=== PATIENT | female | born 1930 | race Caucasian/White ===

== ENCOUNTER 2016-05-12 10:43 | Inpatient (IN) | payer OTHER ==
[~2016-05-12] VITALS: Ht 162.6 cm; Wt 68.5 kg
[~2016-05-12 10:43] MED LIST: ADVIN25/60 INH; CALC-338 PO; CLB/200 PO; CLOP1TAB15 PO; DILT180C70 PO; DONE1TAB25 PO; FENO48TA9 PO; FLUO20CA35 PO; HYDR1TAB2 PO; LANS15CA27 PO; MULT-190 PO; OXYB5TAB74 PO; SIMV20TA2 PO
[2016-05-12] MEDS ORDERED: SODIUM CHLORIDE 0.9% 1000ML 1,000 ML IV SCH (17:31)
[2016-05-12 17:32] VITALS: BP 127/79; PULSE 81; TEMP 36.8; O2SAT 96; Ht 162.6 cm; Wt 68.5 kg
[2016-05-12] MEDS ORDERED: CALC500C70 PO (17:44)
[2016-05-12] MEDS ORDERED: MELA1TAB5 PO (17:44)
[2016-05-12] MEDS ORDERED: ACET-1256 PO (17:44)
[2016-05-12] MEDS ORDERED: MIRA1TAB3 PO (17:44)
[2016-05-12] MEDS ORDERED: ASPI81TA28 PO (17:44)
[2016-05-12] MEDS ORDERED: MEMA1CAP7 PO (17:44)
[2016-05-12] MEDS ORDERED: ACETAMINOPHEN IV 100 ML IV PRN (17:45)
[2016-05-12] MEDS ORDERED: MoRPHine SULFATE 2 MG/ML CARP IV PRN (17:45)
[2016-05-12] MEDS ORDERED: ONDANSETRON INJ 2 MG/ML 2 ML VIAL IV PRN (17:45)
--- NOTE | 2016-05-12 18:13 | History and Physical ---
History & Physical Date of Service May 12, 2016. History & Physical rectal bleeding Dr case consult [id number] Rn to call md to get order of blood transfusion when hb <8 RN please continue none weight bearing in left lower leg until get more instruction from patient ortho Dr. Carson office in [facility] tomorrow RN please call and get more instruction from patient ortho Dr. Carson office in [place] tomorrow about weight bearing
[2016-05-12 18:25] LABS: HEMATOCRIT 26.3 % (37-47); MEAN CELL VOLUME 85.4 fL (80-100); MEAN CORPUSCULAR HEMOGLOBIN 31.2 pg (25-34); MEAN CORPUSCULAR HGB CONC 36.5 g/dl (32-36); MEAN PLATELET VOLUME 8.6 fL (7.4-10.4); PLATELET COUNT 260 K/uL (130-400); RED BLOOD COUNT 3.08 M/uL (4.2-5.4); WHITE BLOOD COUNT 11.93 K/uL (4.8-10.8)
[2016-05-12] MEDS ORDERED: NURSING VERBAL MED ORDER ONE ×2 (18:30→18:45)
[2016-05-12 18:36] LABS: INR 1.1 (0.9-1.1); PROTHROMBIN TIME (PATIENT) 11.4 SECONDS (9.0-12.0)
[2016-05-12] MEDS ORDERED: METOPROLOL TARTRATE 1 MG/ML VIAL IV. SCH (18:45)
[2016-05-12] MEDS: D5W AND 1/2NSS 1,000 ML IV SCH (18:45)
--- NOTE | 2016-05-12 18:56 | HISTORY & PHYSICAL EXAMINATION ---
DATE OF ADMISSION: 05/12/2016 This is a level 3 inpatient admission, 40 minutes. CHIEF COMPLAINT: Rectal bleeding. HISTORY OF PRESENT ILLNESS: An 85-year-old white female with a significant past medical history of multiple brain infarctions, CVA, dementia, recent hip repair 2 weeks ago, hypertension transferred from [facility] because of the rectal bleeding. The medical history was based on the medical record from [facility], discussed with the patient, and with the patient's daughter who is power of banking attorney at the bedside. Reported she was having left hip fracture and had a procedure done with a pin in the left hip 2 weeks ago, the orthopedic doctor was Dr. Carosn, and then she went to extended nursing care facilities for rehabilitation. In the nursing care facility the patient noticed to have rectal bleeding which she described as flushing out red blood per rectum. She was admitted to the [facility] and she had a blood transfusion and p.o. Protonix. Totally, she got 3 units of blood transfusion and last unit was finished at 1:00 p.m. today. Today's lab in [place] at [facility] - WBC was 11.2, hemoglobin was 7.3, but after transfusion was not checked yet. The patient reported was having dizziness, but denied chest pain, shortness of breath, palpitation. Denied cough, sputum, lower extremity swelling. Denied facial droop, slurry speeches or local weakness. Denied fever or chills. Denied dysuria, urgency and frequencies. PAST MEDICAL HISTORY: Like I mentioned in the above. SOCIAL HISTORY: The patient is do not resuscitation. The patient was living in the nursing home facilities prior to admission to the [facility]. Denied tobacco abuse disorder, denied alcohol abuse disorder, denied illicit drug abuse. PAST SURGICAL HISTORY: Include left hip recent repairing because of a fall. REVIEW OF SYSTEMS: Please see HPI, otherwise 14 points organ system review were negative. PHYSICAL EXAMINATION: VITAL SIGNS: Temperature is 36.8, pulse 81, respiratory rate 20, blood pressure 137/79. Pulse ox was 96% on room air. GENERAL: The patient is a white female, decreased hearing. HEAD: Normocephalic. EYES: Pupils equal, round responds to light. EARS: Ear was normal. NOSE: Normal. NECK: Supple. Thyroid - no enlargement. Trachea in midline. HEART: Regular rhythm. S1, S2. LUNGS: Decreased breathing sounds. There was no wheezing, rhonchi or crackles. ABDOMEN: Soft, nontender. Bowel sounds were positive. GENITOURINARY AND RECTAL: Deferred. EXTREMITIES: Bilateral lower extremity - no swelling. Homans sign was negative. Calf was nontender. Left hip area - incision was clean Daughter reported left hip incision staple was just removed today. MEDICATIONS: Medications taking in [facility] which include: 1. Lasix 1 dose in [facility] 2. Protonix 80 mg IV x1. 3. Vitamin A. 4. Prozac 20 mg p.o. daily. 5. Myrbetriq - details unknown. 6. Cardizem-CD 180 mg p.o. daily. 7. Tylenol 500 mg p.o. q. 6 hours p.r.n. for pain. 8. Namenda 10 mg p.o. q.p.m. 9. Melatonin 3 mg p.o. at bedtime. 10. Aricept 10 mg p.o. at bedtime. She was taking aspirin 81 mg p.o. daily, Plavix 75 mg p.o. daily, and Lovenox 30 mg subQ daily, which were discontinued during the hospital stay in [facility]. IMAGING DATA: Imaging studies include head CT, chest x-ray and abdominal pelvis CT studies. Head CT studies show no acute intracranial process. While reviewing medical records, we do not see abdominal and pelvis CT report yet. We have the disc come together with medical record and will send to radiology department for radiologist's review, Will continue searching for the medical records, but so far I did not see any report of abd/pelvix CT. LABORATORY STUDIES: Like I mentioned the labs in [facility] today - WBC 11.2, hemoglobin 7.3, platelet 267. Blood glucose 89, BUN 21, creatinine 0.5, sodium 143, potassium 4, chloride 109, bicarbonate 24, calcium 7.8. ASSESSMENT AND PLAN: An 85-year-old white female with the problems below: 1. Rectal bleeding, etiology unknown, is on Lovenox for DVT px post hip procedure, aspirin, and Plavix prior to these episodes. no hx of GI bleeding. 2. Recent history of left hip repairing just had the staple removed today. Lovenox for deep vein thrombosis prophylaxis. Her orthopedic surgeon in [place] is Dr. Carson. 3. Acute blood loss anemia from gastrointestinal bleeding. 4. History of cerebrovascular accident. 5. Dementia. 6. Hypertension. 7. Depression. Discussed with patient and daughter about a care plan. Will be n.p.o., IV fluid, Protonix IV b.i.d., Dr. Jacobsen's consultation, the reason for request Dr. Jacobsen because patient's daughter's GI doctor is Dr. Jacobsen as well. Therefore, patient prefers Dr. Jacobsen to see her. We will check H\T\H q. 6 hours. Type and cross hold 2-unit blood, and if hemoglobin level less than 8 will have nurse to call M.D. to give order of blood transfusion. n.p.o. The patient was on Cardizem-CD at home for unknown reason, other medical conditions include hypertension. Will hold Cardizem-CD for now as well as all other oral medications. Continue supportive care. have ordered lopressor iv q 6 prn for elevated BP and HR. Gastrointestinal prophylaxis is covered by Protonix. Deep venous thrombosis prophylaxis is contraindicated from a pharmacologic, such as heparin product, but will have FLIP hose for deep vein thrombosis prophylaxis. Discussed with patient and daughter about a care plan, transfusion consent was signed. The patient confirmed is do not resuscitation. MTDD
[2016-05-12] MEDS ORDERED: METOPROLOL TARTRATE 1 MG/ML VIAL IV PRN (19:00)
[2016-05-12 19:37] VITALS: BP 101/60; PULSE 73; TEMP 36.7; O2SAT 96
[2016-05-12] MEDS: PANTOprazole INJ 40 MG in SYRINGE 0 ML IV SCH (21:29)
[2016-05-12 22:32] LABS: HEMATOCRIT 25.5 % (37-47)
[2016-05-13] VITALS (7 sets, daily range): BP systolic 108–145; BP diastolic 61–91; PULSE 70–79; TEMP 36.6–37.1; O2SAT 94–97
[2016-05-13 06:43] LABS: BASO % 0.2 %; BASO ABS # 0.02 K/uL (0-0.2); EOS % 5.1 %; HEMATOCRIT 25.1 % (37-47); IG% 0.9 %; LYMPH % 18.8 %; LYMPH ABS # 1.86 K/uL (1.2-3.4); MEAN CELL VOLUME 88.7 fL (80-100); MEAN CORPUSCULAR HGB CONC 33.9 g/dl (32-36); MEAN PLATELET VOLUME 9.3 fL (7.4-10.4); MONO % 8.8 %; NEUT % 66.2 %; PLATELET COUNT 264 K/uL (130-400); RED BLOOD COUNT 2.83 M/uL (4.2-5.4); WHITE BLOOD COUNT 9.91 K/uL (4.8-10.8)
[2016-05-13] MEDS: D5W AND 1/2NSS 1,000 ML IV SCH ×2 (07:15→21:27)
[2016-05-13 07:17] LABS: COMPLETE YES
[2016-05-13 07:19] LABS: BUN/CREATININE RATIO 18.8 (10-20); CALCIUM 7.9 mg/dl (8.5-10.1); CREATININE 0.58 mg/dl (0.60-1.20); MAGNESIUM 2.1 mg/dl (1.8-2.4); POTASSIUM 3.4 mmol/L (3.5-5.1)
[2016-05-13] MEDS: PANTOprazole INJ 40 MG in SYRINGE 0 ML IV SCH ×2 (08:29→21:27)
[2016-05-13] MEDS: POTASSIUM CHLR 10 MEQ / WTR 10 MEQ in PREMIXED WATER 100 ML IV SCH ×2 (08:30→09:30)
--- NOTE | 2016-05-13 08:48 | Clinical Documentation Query ---
CARLEY Berry : CLINICAL DOCUMENTATION QUERY Patient is an 85 year old female with noted repair of left hip fracture two weeks ago at an external facility. Subsequent to this, she has begun passing blood per rectum. Prior to presentation at [facility], home medication regimen included concomitant use of ASA, Plavix, and Lovenox. She has been transfused 3 units of PRBC's, is to be seen in consultation by gastroenterology, and will be monitored with serial hematology. In your clinical opinion is this patient being managed for: ( x ) Hemorrhagic disorder due to extrinsic circulating anticoagulants ( ) Other explanation of clinical findings (Please Explain) ( ) Unable to determine (Please Define) ( ) Need to Discuss ( ) Not Agree The medical record reflects the following clinical findings, treatment, and risk factors. Clinical Indicators: As above Treatment:She has been transfused 3 units of PRBC's, is to be seen in consultation by gastroenterology, and will be monitored with serial hematology Risk Factors: ASA, Plavix, and Lovenox use concomitantly. Please clarify and document your clinical opinion in the progress notes and discharge summary. Terms such as "probable", "suspected", "likely", "questionable", "possible", or "still to be ruled out" are acceptable. IF IN AGREEMENT, YOU MUST DOCUMENT ABOVE DIAGNOSTIC STATEMENT IN DAILY PROGRESS NOTES AND DISCHARGE SUMMARY. This document is not part of the patient's record. Thank You, Tony Brand, HADLEY [phone]
--- NOTE | 2016-05-13 10:31 | Gastrointestinal Consultation ---
Gastrointestinal Consultation Date of Consultation: May 13, 2016 Attending Physician: Dr. Sofia Consulting Physician: Dr. Jacobsen/SIMONE Snowden Reason for Consultation: Rectal bleeding History of Present Illness Patient is a 85 year old female with a history of dementia and CVA with recent fall and subsequent left hip fracture and repair by Dr. Carson two weeks ago. She was recovering at a rehabilitation facility at which time she developed a sudden onset of rectal bleeding. The patient is unable to describe her symptoms but the daughter states the bleeding was mostly bright red but also some dark and tarry. The symptoms began on Thursday per the daughter's report. She was being administered Lovenox for DVT prophylaxis postoperatively. She had also been taking Plavix and aspirin prior to surgery but those medications had been subsequently discontinued. Per the daughter's report, the bleeding spontaneously stopped yesterday morning and she has not had any bleeding since admission to [facility] here. She did transfer from [facility] at which time she was noted to have a hemoglobin of 7.3. The patient received a blood transfusion of 3 units and was noted to have a hemoglobin of 9.6 upon arrival yesterday. Her hemoglobin did drop slightly to 8.5 this morning. Her vital signs are stable and BUN was normal at 11. INR was 1.1. She has been kept NPO and placed on Protonix 40 mg IV BID. There was mention of an abdominopelvic CT at [facility] which is not available to review today. Past Medical/Surgical History Past Medical History: 1. CVA 2. Dementia 3. Left hip fracture 4. Diverticulosis and diverticulitis 5. Asthma 6. Hypertension 7. Depression Past Surgical History: 1. Colonoscopy 2011 per daughter's report 2. Left hip surgery 3. Partial colectomy Family History Negative for GI malignancy or IBD Social History Smoking Status: Former Smoker Alcohol Use: none Drug Use: none Allergies Coded Allergies: Sulfa Drugs (Verified Allergy, Unknown, "SULFA" ALLERGY, 03/12/13) Current Medications Home Meds and Scripts Medications Dose Route/Sig Max Daily Dose Days Date Category Os-Edison 500 Plus D (Calcium/Vitamin D) Tab 1 Tab PO DAILY 05/12/16 Reported Kp Melatonin (Melatonin) 3 Mg Tab 1 Tab PO HS 30 05/12/16 Reported Myrbetriq Er (Mirabegron) 50 Mg Tab 50 Mg PO DAILY 05/12/16 Reported Namenda Xr (Memantine Hcl) 28 Mg Cap 1 Cap PO HS 05/12/16 Reported Aspirin Ec (Aspirin) 81 Mg Tab 81 Mg PO DAILY 05/12/16 Reported Tylenol (Acetaminophen) 500 Mg Tab 1 Tab PO Q6H 3 05/12/16 Reported Advair Diskus 250/50 60 Dose (Fluticasone Prop/Salmeterol) 1 Ea Aerp 1 Puff INH BID 03/12/13 Reported Donepezil Hcl (Donepezil Hydrochloride) 5 Mg Tab 5 Mg PO QPM 03/12/13 Reported Ocuvite Preservision (Multivitamins/Minerals) 1 Tab Tab 1 Tab PO QAM 03/12/13 Reported Prozac (Fluoxetine HCl) 20 Mg Cap 20 Mg PO QAM 03/12/13 Reported Prevacid (Lansoprazole) 15 Mg Cap 15 Mg PO QAM 03/12/13 Reported Plavix (Clopidogrel Bisulfate) 75 Mg Tab 75 Mg PO QAM 03/12/13 Reported Diltiazem Hcl 180 Mg Capcr 1 Tab PO QAM 03/12/13 Reported Review of Systems Constitutional: + fatigue Eyes: No problem reported ENT: No problem reported Respiratory: No cough, No shortness of breath Cardiac: No chest pain, No palpitations Abdomen: + see HPI Musculoskeletal: + joint pain Female : No problem reported Neuro: No problem reported Psych: No problem reported Skin: No problem reported Physical Exam Date Time Temp Pulse Resp B/P Pulse Ox O2 Delivery O2 Flow Rate FiO2 05/13/16 07:47 36.6 75 21 127/70 96 Room Air 05/13/16 04:00 36.8 77 16 108/61 96 Room Air 05/13/16 00:00 36.7 77 16 109/63 95 Room Air 05/12/16 23:59 Room Air 05/12/16 20:00 Room Air 05/12/16 19:37 36.7 73 20 101/60 96 Room Air 05/12/16 18:45 78 128/77 05/12/16 17:32 36.8 81 20 127/79 96 Room Air General Appearance: WD/WN, no apparent distress Eyes: EOMI ENT: hearing grossly normal Neck: supple Respiratory/Chest: lungs clear, normal breath sounds, no respiratory distress Cardiovascular: regular rate, rhythm, no gallop, + systolic murmur (6) Abdomen: normal bowel sounds, soft Extremities: no pedal edema Neurologic/Psych: alert, + disoriented Skin: warm/dry Laboratory Results Last 24 Hours Test 05/12/16 18:18 05/12/16 22:21 05/13/16 06:19 White Blood Count 11.93 K/uL 9.91 K/uL Red Blood Count 3.08 M/uL 2.83 M/uL Hemoglobin 9.6 g/dL 8.8 g/dL 8.5 g/dL Hematocrit 26.3 % 25.5 % 25.1 % Mean Corpuscular Volume 85.4 fL 88.7 fL Mean Corpuscular Hemoglobin 31.2 pg 30.0 pg Mean Corpuscular Hemoglobin Concent 36.5 g/dl 33.9 g/dl RDW Standard Deviation 47.6 fL 49.1 fL RDW Coefficient of Variation 15.3 % 15.4 % Platelet Count 260 K/uL 264 K/uL Mean Platelet Volume 8.6 fL 9.3 fL Prothrombin Time 11.4 SECONDS Prothromb Time International Ratio 1.1 Neutrophils (%) (Auto) 66.2 % Lymphocytes (%) (Auto) 18.8 % Monocytes (%) (Auto) 8.8 % Eosinophils (%) (Auto) 5.1 % Basophils (%) (Auto) 0.2 % Neutrophils # (Auto) 6.56 K/uL Lymphocytes # (Auto) 1.86 K/uL Monocytes # (Auto) 0.87 K/uL Eosinophils # (Auto) 0.51 K/uL Basophils # (Auto) 0.02 K/uL Immature Granulocyte % (Auto) 0.9 % Immature Granulocyte # (Auto) 0.09 K/uL Red Blood Cell Morphology Unremarkable Sodium Level 142 mmol/L Potassium Level 3.4 mmol/L Chloride Level 106 mmol/L Carbon Dioxide Level 29 mmol/L Anion Gap 7.0 mmol/L Blood Urea Nitrogen 11 mg/dl Creatinine 0.58 mg/dl Est Creatinine Clear Calc Drug Dose 65.4 ml/min Estimated GFR () 96.1 Estimated GFR (Non- 82.9 BUN/Creatinine Ratio 18.8 Random Glucose 107 mg/dl Calcium Level 7.9 mg/dl Magnesium Level 2.1 mg/dl Impression Patient is a 85 year old female with a history of left hip fracture s/p repair two weeks ago on Lovenox for DVT prophylaxis presenting with rectal bleeding ( now resolved) and acute blood loss anemia. Diff dx: PUD vs AVM vs diverticular bleed vs malignancy vs hemorrhoids vs other. Plan 1. Discussed risks vs benefits of invasive GI work up with the patient and daughter. The determination is conservative management at this time as bleeding has stopped and the daughter is concerned about the negative effects of anesthesia on her mother's underlying dementia. Endoscopic evaluation can be reconsidered if returning bleeding or significant drop in H&H again. 2. Continue Protonix 40 mg IV BID. 3. Recommend attempting to obtain recent abdominopelvic CT imaging from [facility]. 4. Recommend supportive care by primary team. Thank you for allowing us to participate in the care of this patient. If you have any questions or concerns, please do not hesitate to contact us. Agree with SIMONE Snowden as above Abd: Soft, NT, ND, +BS EGD negative for any evidence of recent or active GI bleeding. Only findings were a small hiatal hernia and gastric polyps. Continue supportive care. If no overt GI blood loss would not perform colonoscopy.
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
[2016-05-13] MEDS ORDERED: LIDOCAINE HCL 2% 2 ML VIAL (20MG/ML) ONE (13:50)
[2016-05-13] MEDS ORDERED: PROPOFOL IV EMULSION 10 MG/ML 20 ML VIAL IV ONE (13:50)
--- NOTE | 2016-05-13 13:55 | GI REPORT ---
Procedure Date: 05/13/2016 1:32 PM Procedure: Upper GI endoscopy Indications: Acute post hemorrhagic anemia Medicines: Monitored Anesthesia Care Complications: No immediate complications. Estimated Blood Loss: Estimated blood loss: none. Procedure: Pre-Anesthesia Assessment: - Prior to the procedure, a History and Physical was performed, and patient medications and allergies were reviewed. The patient's tolerance of previous anesthesia was also reviewed. The risks and benefits of the procedure and the sedation options and risks were discussed with the patient. All questions were answered, and informed consent was obtained. Prior Anticoagulants: The patient last took aspirin 2 days and Plavix (clopidogrel) 2 days prior to the procedure. ASA Grade Assessment: III - A patient with severe systemic disease. After reviewing the risks and benefits, the patient was deemed in satisfactory condition to undergo the procedure. After obtaining informed consent, the endoscope was passed under direct vision. Throughout the procedure, the patient's blood pressure, pulse, and oxygen saturations were monitored continuously. The On-site loaner was introduced through the mouth, and advanced to the second part of duodenum. The upper GI endoscopy was accomplished without difficulty. The patient tolerated the procedure well. Findings: The esophagus was normal. A small hiatus hernia was present. Multiple 3 to 6 mm sessile polyps with no bleeding and no stigmata of recent bleeding were found in the gastric fundus. The examined duodenum was normal. Impression: - Normal esophagus. - Small hiatus hernia. - Multiple gastric polyps. - Normal examined duodenum. - No specimens collected. Recommendation: - Resume previous diet. - Continue present medications. - Return patient to [facility] for ongoing care. Mingo Jacobsen, DO 05/13/2016 1:55:14 PM This report has been signed electronically. Note Initiated On: 05/13/2016 1:32 PM I attest to the content of the Intraoperative Record and orders documented therein, exceptions below
[2016-05-13 15:04] LABS: HEMATOCRIT 27.3 % (37-47)
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
[2016-05-14] VITALS (8 sets, daily range): BP systolic 125–143; BP diastolic 60–78; PULSE 66–76; TEMP 36.4–36.8; O2SAT 93–99
[2016-05-14 07:26] LABS: BASO % 0.3 %; BASO ABS # 0.03 K/uL (0-0.2); COMPLETE YES; EOS % 5.2 %; IG% 0.7 %; LYMPH % 16.4 %; LYMPH ABS # 1.75 K/uL (1.2-3.4); MEAN CELL VOLUME 88.6 fL (80-100); MEAN CORPUSCULAR HEMOGLOBIN 28.8 pg (25-34); MEAN CORPUSCULAR HGB CONC 32.5 g/dl (32-36); NEUT % 69.4 %; PLATELET COUNT 306 K/uL (130-400); RED BLOOD COUNT 3.16 M/uL (4.2-5.4); WHITE BLOOD COUNT 10.64 K/uL (4.8-10.8)
[2016-05-14 08:01] LABS: BUN/CREATININE RATIO 13.3 (10-20); CALCIUM 8.3 mg/dl (8.5-10.1); CREATININE 0.55 mg/dl (0.60-1.20); POTASSIUM 3.5 mmol/L (3.5-5.1)
[2016-05-14] MEDS: D5W AND 1/2NSS 1,000 ML IV SCH (08:15)
[2016-05-14] MEDS: PANTOprazole INJ 40 MG in SYRINGE 0 ML IV SCH (08:47)
--- NOTE | 2016-05-14 10:11 | Gastroenterology Progress Note ---
Progress Note Date of Service: May 14, 2016 Subjective Pt evaluation today including: conversation w/ patient, chart review, lab review, review of studies, review of inpatient medication list Patient is without any GI complaints. She states "I slept well last night". H&H remains stable. No source of GIB identified on EGD yesterday. Continues Protonix 40 mg IV BID. Review of Systems Constitutional: No problem reported Abdomen: + see HPI Psych: No problem reported Medications Current Inpatient Medications Medications (Trade) Dose Ordered Sig/Deandra Route Start Time Stop Time Status Last Admin Dose Admin Ondansetron HCl (Zofran Inj) 4 mg Q6H PRN IV 05/12/16 17:45 06/11/16 17:44 Morphine Sulfate 2 mg 2 mg Q30M PRN IV 05/12/16 17:45 05/26/16 17:44 Acetaminophen 100 ml @ 400 mls/hr Q8H PRN IV 05/12/16 17:45 06/11/16 17:44 Pantoprazole Sodium 40 mg/ Syringe 10 ml @ 5 mls/min BID@0900,2100 IV 05/12/16 21:00 06/11/16 20:59 05/14/16 08:47 5 MLS/MIN Dextrose/Sodium Chloride (D5W And 1/2nss) 1,000 ml @ 80 mls/hr [id number] IV 05/12/16 18:45 06/11/16 18:44 05/14/16 08:15 80 MLS/HR Metoprolol Tartrate (Lopressor Iv) 5 mg Q6 PRN IV 05/12/16 19:00 06/11/16 18:59 Objective Vital Signs Date Time Temp Pulse Resp B/P Pulse Ox O2 Delivery O2 Flow Rate FiO2 05/14/16 07:34 36.4 69 18 143/69 97 Room Air 05/14/16 04:00 36.6 73 18 130/70 96 Room Air 05/14/16 04:00 Room Air 05/14/16 00:15 93 Room Air 05/14/16 00:00 36.6 76 19 125/60 93 Room Air 05/13/16 20:15 97 Room Air 05/13/16 19:30 36.8 79 19 145/91 97 Room Air 05/13/16 16:10 Room Air 05/13/16 16:07 37.0 70 21 119/71 94 Room Air 05/13/16 14:02 70 18 109/56 93 Room Air 05/13/16 13:52 65 16 108/53 100 Mask 6 05/13/16 13:08 36.8 82 20 95/58 96 Room Air 05/13/16 12:10 Room Air 05/13/16 12:08 37.1 72 20 142/85 96 Room Air Physical Exam General Appearance: no apparent distress Eyes: EOMI ENT: hearing grossly normal Neck: supple Respiratory/Chest: lungs clear, normal breath sounds, no respiratory distress Cardiovascular: regular rate, rhythm, no gallop, no murmur Abdomen: normal bowel sounds, non tender, soft Neurologic/Psych: alert, normal mood/affect, oriented x 3 Skin: warm/dry Laboratory Results Last 24 Hours Test 05/13/16 14:55 05/14/16 07:04 Hemoglobin 9.3 g/dL 9.1 g/dL Hematocrit 27.3 % 28.0 % White Blood Count 10.64 K/uL Red Blood Count 3.16 M/uL Mean Corpuscular Volume 88.6 fL Mean Corpuscular Hemoglobin 28.8 pg Mean Corpuscular Hemoglobin Concent 32.5 g/dl Platelet Count 306 K/uL Mean Platelet Volume 9.0 fL Neutrophils (%) (Auto) 69.4 % Lymphocytes (%) (Auto) 16.4 % Monocytes (%) (Auto) 8.0 % Eosinophils (%) (Auto) 5.2 % Basophils (%) (Auto) 0.3 % Neutrophils # (Auto) 7.39 K/uL Lymphocytes # (Auto) 1.75 K/uL Monocytes # (Auto) 0.85 K/uL Eosinophils # (Auto) 0.55 K/uL Basophils # (Auto) 0.03 K/uL RDW Standard Deviation 48.3 fL RDW Coefficient of Variation 15.2 % Immature Granulocyte % (Auto) 0.7 % Immature Granulocyte # (Auto) 0.07 K/uL Sodium Level 144 mmol/L Potassium Level 3.5 mmol/L Chloride Level 108 mmol/L Carbon Dioxide Level 27 mmol/L Anion Gap 9.0 mmol/L Blood Urea Nitrogen 7 mg/dl Creatinine 0.55 mg/dl Est Creatinine Clear Calc Drug Dose 68.2 ml/min Estimated GFR () 97.7 Estimated GFR (Non- 84.3 BUN/Creatinine Ratio 13.3 Random Glucose 117 mg/dl Calcium Level 8.3 mg/dl Magnesium Level 2.0 mg/dl Assessment and Plan Patient is a 85 year old female with a history of left hip fracture s/p repair two weeks ago on Lovenox for DVT prophylaxis presenting with rectal bleeding ( now resolved) and acute blood loss anemia. 1. Continue IV Protonix 40 mg IV BID. 2. Advance diet as tolerated. 3. Supportive measures per primary team. 4. No plan for any further endoscopic evaluation at this time.
[2016-05-14] MEDS ORDERED: DILTIAZEM HCL 180 MG CAPCR PO ONE (13:32)
[2016-05-14] MEDS: MEMANTINE PO SCH (16:00)
--- NOTE | 2016-05-14 16:58 | DIAGNOSTIC IMAGING REPORT ---
RENAL ULTRASOUND CLINICAL HISTORY: Suprapubic pain. Difficulty passing Moreno catheter. COMPARISON STUDY: CT of the abdomen and pelvis May 09, 2016. TECHNIQUE: Sonography of the kidneys and the urinary bladder was performed. FINDINGS: This exam is compromised by suboptimal penetration. There is no hydronephrosis. The right kidney measures 10.1 x 6 x 6.5 cm and the left measures 10.5 x 5.7 x 6.4 cm. There is mild renal cortical thinning. The bladder was suboptimally assessed due to underdistention. No calculi were identified. IMPRESSION: 1. No hydronephrosis. 2. Mild renal cortical thinning. 3. Suboptimal evaluation of the bladder due to underdistention. Electronically signed by: Stoney Link M.D. 05/14/2016 4:56 PM Dictated Date/Time: 05/14/2016 4:55 PM
[2016-05-14 17:06] LABS: URINE APPEARANCE CLOUDY (CLEAR); URINE BILIRUBIN NEG (NEG); URINE COLOR YELLOW; URINE EPITHELIAL CELL AUTO >30 /lpf (0-5); URINE NITRITE NEG (NEG); URINE PH 5.5 (4.5-7.5); UROBILINOGEN NEG (NEG)
[2016-05-14 17:19] LABS: MANUAL MICROSCOPIC REQUIRED? NO; REVIEW REQ? NO
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
[2016-05-14] MEDS: FLUTICASONE/SALMETEROL 250/50 (ADVAIR) 14 PUFF/1 INHALER INH SCH (20:13)
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
[2016-05-14] MEDS ORDERED: NON-FORMULARY MEDICATION (Melatonin (Kp Melatonin) 1 TAB) PO SCH (21:00)
[2016-05-14] MEDS ORDERED: CEFTRIAXONE SOD INJ 1 GM in DEXTROSE 5% ADD-VANTAGE 50ML 50 ML IV SCH (21:00)
[2016-05-14] MEDS ORDERED: DONEPEZIL HCL 5 MG TAB PO SCH (21:00)
[2016-05-15 00:20] VITALS: BP 118/69; PULSE 64; TEMP 36.7; O2SAT 97
[2016-05-15 04:00] VITALS: O2SAT 97
[2016-05-15 05:00] VITALS: BP 151/74; PULSE 69; TEMP 36.7; O2SAT 97
[2016-05-15] MEDS: ACETAMINOPHEN 325 MG TAB PO PRN ×2 (06:13→11:32)
[2016-05-15 06:51] LABS: BASO % 0.3 %; BASO ABS # 0.03 K/uL (0-0.2); COMPLETE YES; EOS % 4.8 %; HEMATOCRIT 27.6 % (37-47); IG% 1.1 %; LYMPH ABS # 1.98 K/uL (1.2-3.4); MEAN CELL VOLUME 89.9 fL (80-100); MEAN CORPUSCULAR HGB CONC 33.3 g/dl (32-36); MEAN PLATELET VOLUME 9.3 fL (7.4-10.4); NEUT % 66.8 %; PLATELET COUNT 324 K/uL (130-400); RED BLOOD COUNT 3.07 M/uL (4.2-5.4)
[2016-05-15 07:09] LABS: BUN/CREATININE RATIO 12.2 (10-20); CREATININE 0.59 mg/dl (0.60-1.20); MAGNESIUM 1.9 mg/dl (1.8-2.4); POTASSIUM 3.5 mmol/L (3.5-5.1)
[2016-05-15] MEDS: MEMANTINE PO SCH (08:00)
[2016-05-15] MEDS: FLUTICASONE/SALMETEROL 250/50 (ADVAIR) 14 PUFF/1 INHALER INH SCH (08:08)
[2016-05-15 08:40] VITALS: BP 132/72; PULSE 84; TEMP 36.7; O2SAT 98
[2016-05-15] MEDS ORDERED: DILTIAZEM HCL 180 MG CAPCR PO SCH (09:00)
[2016-05-15] MEDS ORDERED: PANTOprazole SOD 40 MG TAB PO SCH (09:00)
[2016-05-15] MEDS ORDERED: MIRABEGRON ER 25 MG TAB PO SCH (09:00)
[2016-05-15] MEDS ORDERED: FLUOXETINE HCL 20 MG CAP PO SCH (09:00)
[2016-05-15] MEDS ORDERED: CALCIUM 600MG + VIT D 400 IU TAB PO SCH (09:00)
[2016-05-15] MEDS ORDERED: CEROVITE ADV FORMULA TAB PO SCH (09:00)
[2016-05-15] MEDS ORDERED: CLOP1TAB15 PO (10:42)
[2016-05-15] MEDS ORDERED: ACET-1256 PO (10:42)
[2016-05-15] MEDS ORDERED: CEPH-571 PO (10:42)
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
[2016-05-15 11:26] VITALS: BP 132/72; PULSE 84; TEMP 36.7; O2SAT 98
[2016-05-15 12:24] VITALS: BP 115/59; PULSE 80; TEMP 36.5; O2SAT 97
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
--- NOTE | 2016-05-28 10:01 | Anesthesiology Progress Note ---
Anesthesia Post Op Note Date & Time May 28, 2016 at 10:01 Vital Signs Pain Intensity: 7.0 Notes Mental Status: alert / awake / arousable, participated in evaluation Pt Amnestic to Procedure: Yes Nausea / Vomiting: adequately controlled Pain: adequately controlled Airway Patency, RR, SpO2: stable & adequate BP & HR: stable & adequate Hydration State: stable & adequate Anesthetic Complications: no major complications apparent
== END 2016-05-15 12:42 | DRG 378 ==
LOC: UNDOADMIN 17:14 → C.2E 17:14
PROVIDERS: ADMIT Internal Medicine; ATTEND Family Medicine
PROC: 0DJ08ZZ Inspection of Upper Intestinal Tract, Via Natural or Artificial Opening Endoscopic (ICD-10-PCS; principal; 2016-05-13 12:50)
DX: K62.5 Hemorrhage of anus and rectum (principal); D62 Acute posthemorrhagic anemia; N39.0 Urinary tract infection, site not specified; K31.7 Polyp of stomach and duodenum; S72.002D Fracture of unspecified part of neck of left femur, subsequent encounter for closed fracture with routine healing; V89.2XXD Person injured in unspecified motor-vehicle accident, traffic, subsequent encounter; J45.909 Unspecified asthma, uncomplicated; R32 Unspecified urinary incontinence; I11.0 Hypertensive heart disease with heart failure; I51.9 Heart disease, unspecified; K21.9 Gastro-esophageal reflux disease without esophagitis; K44.9 Diaphragmatic hernia without obstruction or gangrene; I35.0 Nonrheumatic aortic (valve) stenosis; F01.50 Vascular dementia, unspecified severity, without behavioral disturbance, psychotic disturbance, mood disturbance, and anxiety; F32.9 Major depressive disorder, single episode, unspecified; Z66 Do not resuscitate; Z98.890 Other specified postprocedural states; Z86.73 Personal history of transient ischemic attack (TIA), and cerebral infarction without residual deficits; Z87.891 Personal history of nicotine dependence; Z79.01 Long term (current) use of anticoagulants; Z79.02 Long term (current) use of antithrombotics/antiplatelets; Z79.899 Other long term (current) drug therapy